=== PATIENT | male | born 1985 | race Caucasian/White ===

== ENCOUNTER 2017-12-26 10:58 | Emergency (ER) | payer SELFPAY, MEDICAID ==
[2017-12-26] MEDS: KETOROLAC 60 MG INJ IM (11:33)
[2017-12-26 11:55] LABS: URINE BLOOD (Dip) POC Negative (NEGATIVE); URINE GLUCOSE (Dip) POC Negative (NEGATIVE); URINE KETONES (Dip) POC Negative (NEGATIVE); URINE LEUKOCYTE EST (Dip) POC Negative (NEGATIVE); URINE NITRITE (Dip) POC Negative (NEGATIVE); URINE TOTAL PROTEIN POC Negative (NEGATIVE)
== END 2017-12-26 12:29 | disposition home or self-care (01) ==
LOC: FTE 10:58
DX: J06.9 Acute upper respiratory infection, unspecified (principal); R09.1 Pleurisy; E11.9 Type 2 diabetes mellitus without complications; Z87.891 Personal history of nicotine dependence
CPT/HCPCS: 71100; 81003; 82962; 96372; 99284-25